=== PATIENT | male | born 1995 | race Caucasian/White ===

== ENCOUNTER 2020-01-05 20:17 | Outpatient (REF) | payer BC, SELFPAY ==
[2020-01-05 20:52] LABS: Anion Gap 8.4 mmol/L (3-11); BUN 16 mg/dL (7-18); CO2 30.6 mmol/L (21.0-32.0); CREATININE 0.87 mg/dL (0.70-1.30); Calcium 9.7 mg/dL (8.5-10.1); Calculated LDL 176 mg/dL (<100); Chloride 103 mmol/L (98-107); Cholesterol 278 mg/dL (<200); Glucose 75 mg/dL (74-106); HDL Cholesterol 53 mg/dL (40-60); Sodium 142 mmol/L (136-145); Triglyceride 247 mg/dL (<150)
[2020-01-05 21:01] LABS: TSH 1.11 uIU/mL (0.36-3.74)
[2020-01-07 14:45] LABS: Chlamydia Result Negative (Negative); GC Result Negative (Negative)
== END 2020-01-05 20:37 ==
LOC: LBN 20:17
PROVIDERS: Family Medicine; PCP Family Medicine; Visit Provider Family Medicine
DX: Z00.00 Encounter for general adult medical examination without abnormal findings (principal); R00.0 Tachycardia, unspecified; R21 Rash and other nonspecific skin eruption; Z11.3 Encounter for screening for infections with a predominantly sexual mode of transmission
CPT/HCPCS: 80048; 80061; 87491; 87591; 84443

== ENCOUNTER 2020-01-12 01:36 | Outpatient (CLI) | payer BC, SELFPAY ==
--- NOTE | 2020-01-12 13:26 | DI.US_ITS ---
EXAM: US SCROTUM CLINICAL HISTORY: hard nodule felt by patient on right testicle,MASS,N50.89. TECHNIQUE: Scrotal ultrasound performed using grayscale, color-flow and spectral Doppler analysis. COMPARISON: No exams were available for comparison FINDINGS: Right testicle: 4.5 x 2.3 x 2.9 cm Left testicle: 4.2 x 2.2 x 3.3 cm Echogenicity: Normal. Contour: Smooth. Mass: None seen. Microlithiasis: None. Hydrocele: Small right hydrocele. There is a 8 millimeter calcification which is mobile within the r ight hydrocele, consistent with a scrotal gage. Variocele: Left varicocele. Hernia: No peristalsing bowel loop identified. Epididymis: 2 millimeter cyst in the head of the left epididymis.. DOPPLER: Color: Symmetric and uniform, no hyperemia. Duplex: Bilateral testicular arterial waveforms visualized. IMPRESSION: Normal appearing bilateral testicles. Right hydrocele and 8 millimeter scrotal gage. DATA REPOSITORY:
== END 2020-01-12 01:56 ==
PROVIDERS: PCP Family Medicine; Visit Provider Family Medicine
DX: N50.811 Right testicular pain (principal); N50.89 Other specified disorders of the male genital organs; N43.3 Hydrocele, unspecified; N50.3 Cyst of epididymis; N49.2 Inflammatory disorders of scrotum
CPT/HCPCS: 76870